=== PATIENT | female | born 1975 | race African-American/Black ===

== ENCOUNTER 2024-01-06 12:11 | Outpatient (CLI) | payer OTHER ==
[~2024-01-06 12:11] MED LIST: Magnevist 469MG/ML 20 ML VIAL ONE
== END 2024-01-06 12:12 | disposition home or self-care (01) ==
LOC: CSHMRI 12:11
PROVIDERS: ATTEND Internal Medicine
DX: M54.9 Dorsalgia, unspecified (principal); R29.898 Other symptoms and signs involving the musculoskeletal system; M50.322 Other cervical disc degeneration at C5-C6 level; M48.02 Spinal stenosis, cervical region; M51.34 Other intervertebral disc degeneration, thoracic region
CPT/HCPCS: 72156; 72157; A9579

== ENCOUNTER → 2024-03-22 | Day surgery (SDC) | payer OTHER ==
[~2024-03-22] MED LIST changes: +Aspirin Chewable 81 MG TAB ONE; +Bivalirudin 250 MG VIAL ONE; +Diazepam 5 MG TAB ONE; +Heparin 10,000 UNITS/ 10 ML VIAL ONE; +Iopamidol 300 61% 100 ML VIAL FS ONE; +Lidocaine 1% PF 5 ML VIAL ONE; -Magnevist 469MG/ML 20 ML VIAL ONE; +Midazolam HCl 2 mg/2 ml Vial ONE; +Nitroglycerin 50 MG/250 ML BOT 250 ML ONE; +TICAGRELOR 90 MG TABLET ONE; +Verapamil 5 MG/2 ML VIAL ONE; +fentaNYL 50 mcg/mL 1 mL Vial ONE
[2024-03-22 07:10] VITALS: BP 133/73; TEMP 97.3
[2024-03-22 07:21] LABS: #Basophils 0.08 10x3/uL (0.0-0.2); #Eosinphils 0.89 10x3/uL (0.0-0.5); #Monocytes 0.58 10x3/uL (0.0-1.1); #Neutrophils 5.99 10x3/uL (1.5-8.4); %Basophils 0.8 % (0.0-2.0); %Eosinophils 9.2 % (0.0-6.0); %Lymphocytes 21.9 % (18.0-47.0); %Neutrophils 61.8 % (40.0-75.0); Hematocrit 33.1 % (34.9-44.5); Hemoglobin 10.3 g/dL (12.0-15.5); Mean Corpuscular HGB CONC 31.1 g/dL (32.0-36.0); Mean Corpuscular Volume 83.6 fL (81.6-98.3); Mean Platelet Volume 10.3 fL (7.4-10.4); Platelet Count 85 10x3/uL (150-450); RBC Distribution Width 15.2 % (11.5-14.5); Red Blood Cell (RBC) Count 3.96 10x6/uL (3.90-5.03); White Blood Cell (WBC) Count 9.7 10x3/uL (3.5-10.5)
[2024-03-22 07:23] LABS: INR-International Normal Ratio 0.9; Prothrombin Time 10.3 sec (9.5-12.1)
[2024-03-22 07:27] LABS: Anion Gap 13 mmol/L (10-20); BUN (Urea Nitrogen) 20 mg/dL (7.0-18.7); Calc. Creatinine Clearance 112 mL/min (70-130); Calcium 9.5 mg/dL (7.8-10.44); Carbon Dioxide 23 mmol/L (22-29); Chloride 105 mmol/L (98-107); Estimated GFR 54; Glucose 212 mg/dL (70-105); Potassium 4.6 mmol/L (3.5-5.1); Sodium 136 mmol/L (136-145)
[2024-03-22 07:53] LABS: Platelet Adequacy Comment Appears Decreased
== END ==
LOC: CSHSDC 06:13
PROVIDERS: ATTEND Specialist
PROC: 4A023N7 Measurement of Cardiac Sampling and Pressure, Left Heart, Percutaneous Approach (ICD-10-PCS; principal; 2024-03-22)
DX: I25.10 Atherosclerotic heart disease of native coronary artery without angina pectoris (principal); I10 Essential (primary) hypertension; E11.9 Type 2 diabetes mellitus without complications; E78.5 Hyperlipidemia, unspecified; D64.9 Anemia, unspecified; E66.9 Obesity, unspecified; I21.4 Non-ST elevation (NSTEMI) myocardial infarction; M10.9 Gout, unspecified; Z79.899 Other long term (current) drug therapy; Z68.41 Body mass index [BMI] 40.0-44.9, adult; Z79.82 Long term (current) use of aspirin
CPT/HCPCS: 80048; 82962; 85025; 85610; 93458; C1769; C1874; C1887; C1894; C9600; J0583; J1644; J2250; J3010; 36416; 92928; 99152; 99153; Q9967

== ENCOUNTER 2024-08-01 13:27 | Outpatient (CLI) | payer OTHER | END 2024-08-01 13:28 | disposition home or self-care (01) | LOC: CSHDTY/OP 13:27 | PROVIDERS: ATTEND Surgery | DX: E66.01 Morbid (severe) obesity due to excess calories (principal); K21.9 Gastro-esophageal reflux disease without esophagitis | CPT/HCPCS: 97802 ==